=== PATIENT | male | born 1965 | race Caucasian/White ===

== ENCOUNTER 2016-11-14 16:15 | Emergency (ER) | payer BC ==
[2016-11-14] MEDS ORDERED: LIDOCAINE HCL 2% JELLY 1 APP/5 ML TUBE ONE (16:59)
[2016-11-14] MEDS ORDERED: LIDOCAINE/EPI 2% 1:100,000 20 ML VIAL ONE (17:20)
--- NOTE | 2016-11-14 17:52 | ER NURSING DOCUMENTATION ---
Nurse's Notes [facility] Name:Mark Schrader Age:51 yrs Sex:Male :1965 Arrival Date:11/14/2016 Time:16:15 Bed2 Private MD: Diagnosis:Finger Laceration Presentation: 11/14 16:25 Acuity: DENTON 4 tg 16:50 Presenting complaint: Patient states: Pt sliced off very distal tip of left pinky while tg cutting an orange. Transition of care: patient was not received from another setting of care. Complicating Factors: There are no complicating factors for this patient. 16:50 Method Of Arrival: Private Vehicle tg Triage Assessment: 16:52 General: Appears in no apparent distress, Behavior is cooperative. Pain: Complains of tg pain in palmar aspect of distal phalanx of left little finger. Respiratory: Respiratory effort is even, unlabored. Injury Description: Laceration sustained to distal tip of left pinky is 0.5 to 2.5 cm long, was sustained 2-4 hours ago. is bleeding a small amount. Historical: - Allergies: No known drug Allergies; - Home Meds: 1. BP med - PMHx: Hypertension; - PSHx: None; - Tetanus: < 10 years. - Ebola Screening: : Patient negative for fever greater than or equal to 101.5 degrees Fahrenheit, and additional compatible Ebola Virus Disease symptoms. Patient denies exposure to infectious person. Patient denies travel to an Ebola-affected area in the 21 days before illness onset. No symptoms or risks identified at this time. . - Immunization history: Flu Vaccine unknown. - Social history: Smoking status: Patient states was never smoker of tobacco. Screenin:53 Infectious Disease Risk Unable to Obtain. Abuse screen: Denies threats or abuse. Denies tg injuries from another. Nutritional screening: No deficits noted. Vital Signs: 16:35 BP 146 / 92; Pulse 96; Resp 16; Temp 98.4(O); Pulse Ox 95% on R/A; Weight 77.11 kg (R); arc Height 5 ft. 5 in. (165.10 cm) (R); Pain 5/10; 16:35 Body Mass Index 28.29 (77.11 kg, 165.10 cm) arc ED Course: 16:16 Patient arrived in ED. ama 16:17 Micah Herring MD is Attending Physician. johny 16:25 Triage completed. tg 16:53 Valuables Remains with patient. tg 16:53 Assist Provider Assist provider with laceration repair on palmar aspect of distal tg phalanx of left little finger that was 2.5 cm. or less using Dermabond. Set up tray. Performed by Micah Herring MD Patient tolerated well. 17:42 Cleveland Beyer, RN is Primary Nurse. tg 17:42 Wound care was dressed with Tube Gauze. tg Administered Medications: 16:49 Drug: Lidocaine Ointment (2%) 1 inches; {Note: tip of left pinky.} Route: Topical; tg Site: left hand; Outcome: 17:26 Discharge ordered by . johny 17:43 Discharged to home ambulatory. tg 17:43 Condition: stable 17:43 Discharge Assessment: Patient awake, alert and oriented x 3. No cognitive and/or functional deficits noted. Patient verbalized understanding of disposition instructions. 17:43 Instructed on discharge instructions, follow up and referral plans. wound care. 17:51 Patient left the ED. tg Signatures: Cleveland Beyer, RN RN Micah Brooks MD MD jm Averdick, Andrew, Reg Reg ama Cathy Howard, Reg Reg arc
--- NOTE | 2016-11-14 17:52 | ER PHYSICIAN DOCUMENTATION ---
Physician Documentation [facility] ([place], [place]) Name:Mark Schrader Age:51 yrs Sex:Male :1965 Arrival Date:11/14/2016 Time:16:15 Bed2 Private MD: Micah Wood Disposition: 11/14/16 17:26 Discharged to Home/Self Care. Impression: Finger Laceration. - Condition is Good. - Discharge Instructions: FINGER LACERATION - LACERATION, Hand. - Medical Reconciliation form form. - Follow up: Private Physician; When: As needed; Reason: Continuance of care. - Problem is new. - Symptoms have improved. HPI: 11/14 21:11 This 51 yrs old Male presents to ER via Private Vehicle with complaints of jm Laceration - LEFT HAND FINGER. 21:11 The patient or guardian reports a laceration. The complaints affect the palmar aspect jm of distal phalanx of left little finger. Context: resulted from a penetrating injury, by a knife. Historical: - Allergies: No known drug Allergies; - Home Meds: 1. BP med - PMHx: Hypertension; - PSHx: None; - Tetanus: < 10 years. - Ebola Screening: : Patient negative for fever greater than or equal to 101.5 degrees Fahrenheit, and additional compatible Ebola Virus Disease symptoms. Patient denies exposure to infectious person. Patient denies travel to an Ebola-affected area in the 21 days before illness onset. No symptoms or risks identified at this time. . - Immunization history: Flu Vaccine unknown. - Social history: Smoking status: Patient states was never smoker of tobacco. ROS: 21:11 MS/extremity: Positive for laceration. jm 21:11 Skin: Positive for laceration(s). Exam: 21:11 Constitutional: The patient appears alert, awake. jm 21:11 Skin: Appearance: Color: pink, injury, avulsion(s), a small 1 cm(s), of the palmar aspect of distal phalanx of left little finger. Vital Signs: 16:35 BP 146 / 92; Pulse 96; Resp 16; Temp 98.4(O); Pulse Ox 95% on R/A; Weight 77.11 kg (R); arc Height 5 ft. 5 in. (165.10 cm) (R); Pain 5/10; 16:35 Body Mass Index 28.29 (77.11 kg, 165.10 cm) arc Laceration: 21:11 Wound Repair of 1cm ( 0.4in ) subcutaneous laceration to palmar aspect of distal jm phalanx of left little finger. Distal neuro/vascular/tendon intact. Wound prep: Wound irrigation with saline. Skin closed with . Glue using sterile technique. Dressed with bandaid, tube gauze. Patient tolerated well. MDM: 16:17 Patient medically screened. 21:11 Differential diagnosis: finger avulsion lac. Data reviewed: vital signs, nurses notes, jm and as a result, I will discharge patient. Counseling: I had a detailed discussion with the patient and/or guardian regarding: the historical points, exam findings, and any diagnostic results supporting the discharge/admit diagnosis, the need for outpatient follow up, with the patient's primary care provider. Dispensed Medications: 16:49 Drug: Lidocaine Ointment (2%) 1 inches; {Note: tip of left pinky.} Route: Topical; tg Site: left hand; Signatures: Cleveland Beyer RN RN tg Micah Herring MD MD jm
== END 2016-11-14 17:52 | disposition home or self-care (01) ==
LOC: ER 16:15
DX: S61.217A Laceration without foreign body of left little finger without damage to nail, initial encounter (principal); W26.0XXA Contact with knife, initial encounter; Y93.G1 Activity, food preparation and clean up; I10 Essential (primary) hypertension; Z79.899 Other long term (current) drug therapy
CPT/HCPCS: 12041; 99283